=== PATIENT | male | born 1990 | race Caucasian/White ===

== ENCOUNTER 2017-02-03 22:18 | Emergency (ER) | payer SELFPAY ==
[~2017-02-03] VITALS: Ht 188 cm; Wt 69.4 kg
[~2017-02-03 22:18] MED LIST: ALBUTEROL SULF8.5 GM IH; FLONASE ALLERG9.9 ML BOTH NARES; LEVAQUIN500 MG PO; MOTRIN600 MG PO; PREDNISONE20 MG PO
[2017-02-03 22:46] VITALS: BP 133/89
[2017-02-04] MEDS ORDERED: NAPROSYN500 MG PO (00:37)
[2017-02-04] MEDS ORDERED: VIBRAMYCIN100 MG PO (00:37)
[2017-02-04] MEDS ORDERED: NORCO 5/3251 TABLET PO (00:37)
[2017-02-04] MEDS ORDERED: BACTROBAN OINTM22 GM TP (00:38)
== END 2017-02-04 00:54 | disposition home or self-care (01) ==
LOC: EME 22:18
DX: L03.319 Cellulitis of trunk, unspecified (principal); L02.219 Cutaneous abscess of trunk, unspecified
CPT/HCPCS: 99281; 99283

== ENCOUNTER 2017-02-06 22:12 | Emergency (ER) | payer SELFPAY ==
[~2017-02-06] VITALS: Ht 188 cm; Wt 70.4 kg
[~2017-02-06 22:12] MED LIST changes: +BACTROBAN OINTM22 GM TP; +NAPROSYN500 MG PO; +NORCO 5/3251 TABLET PO; +VIBRAMYCIN100 MG PO
[2017-02-06] MEDS ORDERED: PERCOCET 5/31 TABLET PO (23:44)
[2017-02-07 01:03] VITALS: BP 127/85
== END 2017-02-07 01:03 | disposition home or self-care (01) ==
LOC: EME 22:12 → EXP 22:12
PROC: 0H97XZZ Drainage of Abdomen Skin, External Approach (ICD-10-PCS; principal; 2017-02-06)
DX: L02.211 Cutaneous abscess of abdominal wall (principal)
CPT/HCPCS: 87070; 87075; 87205; 99281; 99284